=== PATIENT | male | born 1995 | race Caucasian/White ===

== ENCOUNTER → 2018-07-26 | Outpatient (CLI) | payer BC ==
--- NOTE | 2018-07-26 11:38 | US ---
EXAMINATION TYPE: US abdomen complete DATE OF EXAM: 07/26/2018 COMPARISON: NONE CLINICAL HISTORY: R10.11 ABD PAIN. EXAM MEASUREMENTS: Liver Length: 12.7 cm Gallbladder Wall: 0.2 cm CBD: 0.2 cm Spleen: 11.0 cm Right Kidney: 11.0 x 3.2 x 4.8 cm Left Kidney: 11.1 x 4.5 x 4.5 cm Pancreas: wnl Liver: wnl Gallbladder: wnl Evidence for sonographic Joyner's sign: no CBD: wnl Spleen: wnl Right Kidney: wnl Left Kidney: wnl Upper IVC: wnl Abd Aorta: wnl The visualized liver is homogenous. The intrahepatic portion of the IVC and visualized abdominal aor ta are within normal limits. There is no evidence of cholelithiasis. Common bile duct is unremarkab le. The visualized portions of the pancreas are homogenous. The spleen is unremarkable. Kidneys ar e symmetric and free of hydronephrosis. No renal lesions are seen. IMPRESSION: No suspicious finding identified to account for patient's symptoms of pain.
== END | disposition home or self-care (01) ==
LOC: RADUSWWP 10:24
PROVIDERS: ATTEND Family Medicine
DX: R10.11 Right upper quadrant pain (principal)
CPT/HCPCS: 76700

== ENCOUNTER 2018-10-15 12:34 | Emergency (ER) | payer BC ==
[2018-10-15 12:39] VITALS: RESP 16; TEMP 97.5
--- NOTE | 2018-10-15 13:09 | ED ---
Psych HPI - General Chief Complaint: Psychiatric Symptoms Stated Complaint: Petition Time Seen by Provider: 10/15/18 12:41 Source: patient Mode of arrival: ambulatory - History of Present Illness Initial Comments: 23-year-old male petitioned for psychiatric evaluation. Patient states he recently went through a breakup this began and has felt more depressed than usual. Patient states earlier he had made some suicidal comments. Patient states he is not currently suicidal he states that he made these comments out of rational thought his therapist appointment and that is why he was sent here for evaluation. Patient denies homicidal ideation. Patient states to take melatonin if he were to commit suicide. Patient states he does not want to commit suicide. Patient has no other complaints. Remaining review systems negative. - Related Data Home Medications Medication Instructions Recorded Confirmed Sertraline [Zoloft] 50 mg PO DAILY 10/15/18 10/15/18 Allergies Allergy/AdvReac Type Severity Reaction Status Date / Time No Known Allergies Allergy Verified 10/15/18 12:39 Review of Systems ROS Statement: Those systems with pertinent positive or pertinent negative responses have been documented in the HPI. ROS Other: All systems not noted in ROS Statement are negative. Past Medical History Past Medical History: No Reported History History of Any Multi-Drug Resistant Organisms: None Reported Past Surgical History: No Surgical Hx Reported Past Psychological History: No Psychological Hx Reported Smoking Status: Former smoker Past Alcohol Use History: None Reported Past Drug Use History: Marijuana General Exam - General Exam Comments Initial Comments: General: The patient is awake and alert, in no distress, and does not appear acutely ill. Eye: Pupils are equal, round and reactive to light, extra-ocular movements are intact. No nystagmus. There is normal conjunctiva bilaterally. No signs of icterus. Ears, nose, mouth and throat: There are moist mucous membranes and no oral lesions. Neck: The neck is supple, there is no tenderness or JVD. Cardiovascular: There is a regular rate and rhythm. No murmur, rub or gallop is appreciated. Respiratory: Lungs are clear to auscultation, respirations are non-labored, breath sounds are equal. No wheezes, stridor, rales, or rhonchi. Musculoskeletal: Normal ROM, no tenderness. Strength 5/5. Sensation intact. Pulses equal bilaterally 2+. Neurological: A&O x 3. CN II-XII intact, There are no obvious motor or sensory deficits. Coordination appears grossly intact. Speech is normal. Skin: Skin is warm and dry and no rashes or lesions are noted. Psychiatric: Cooperative, appropriate mood & affect, normal judgment. Limitations: no limitations Course Vital Signs 10/15/18 12:37 Temperature 97.5 F L Pulse Rate 72 Respiratory 16 Rate Blood Pressure 133/91 O2 Sat by Pulse 18 L Oximetry Medical Decision Making - Medical Decision Making 23-year-old male presenting for suicidal ideation. Sent in by petition by therapist. Patient denies any current suicidal ideations. Denies homicidal ideation. Patient medically cleared for EPS evaluation. EPS spoke with patient discussed a safety plan and consulted psychiatry who recommended discharge patient home. Patient has established therapist patient was also provided resources with any mental health as well as medical crisis unit. At this time patient is agreeable discharge continues to deny suicidal ideation. Patient discharged appearing well. - Lab Data Lab Results 10/15/18 Range/Units 13:00 Urine Color Light Yellow Urine Appearance Clear (Clear) Urine pH 5.0 (5.0-8.0) Ur Specific [place] 1.007 (1.001-1.035) Urine Protein Negative (Negative) Urine Glucose (UA) Negative (Negative) Urine Ketones Negative (Negative) Urine Blood Negative (Negative) Urine Nitrite Negative (Negative) Urine Bilirubin Negative (Negative) Urine Urobilinogen <2.0 (<2.0) mg/dL Ur Leukocyte Esterase Negative (Negative) Urine Opiates Screen Not Detected (NotDetected) Ur Oxycodone Screen Not Detected (NotDetected) Urine Methadone Screen Not Detected (NotDetected) Ur Propoxyphene Screen Not Detected (NotDetected) Ur Barbiturates Screen Not Detected (NotDetected) U Tricyclic Antidepress Not Detected (NotDetected) Ur Phencyclidine Scrn Not Detected (NotDetected) Ur Amphetamines Screen Not Detected (NotDetected) U Methamphetamines Scrn Not Detected (NotDetected) U Benzodiazepines Scrn Not Detected (NotDetected) Urine Cocaine Screen Not Detected (NotDetected) U Marijuana (THC) Screen Detected H (NotDetected) Disposition Clinical Impression: Depression Disposition: HOME SELF-CARE Condition: Stable Instructions (If sedation given, give patient instructions): Depression (ED), Help Prevent Suicide (ED) Additional Instructions: Please use medication as discussed. Please follow-up with family doctor in the next 2 days. Please follow-up with [facility]/your therapist. Please return to emergency room if the symptoms increase or worsen or for any other concerns. Is patient prescribed a controlled substance at d/c from ED?: No Referrals: Khari Wong Jr, DO [Primary Care Provider] - 1-2 days Time of Disposition: 16:26
[2018-10-15 13:35] LABS: Appearance,Urine Clear (Clear); Bilirubin,Urine Negative (Negative); Blood,Urine Negative (Negative); Color,Urine Light Yellow; Glucose,Urine (UA) Negative (Negative); Ketones,Urine Negative (Negative); Leukocyte Esterase,Urine Negative (Negative); Nitrite,Urine Negative (Negative); Protein,Urine Negative (Negative); Specific Gravity,Urine 1.007 (1.001-1.035); Urobilinogen,Urine <2.0 mg/dL (<2.0)
[2018-10-15 13:52] LABS: Urn Cannabinoid Scrn Detected (NotDetected)
[2018-10-15 13:53] LABS: Amphetamine Screen,Urine Not Detected (NotDetected); Barbiturate Screen,Urine Not Detected (NotDetected); Benzodiazepines Screen,Urine Not Detected (NotDetected); Cocaine Screen,Urine Not Detected (NotDetected); Methadone Screen, Urine Not Detected (NotDetected); Opiate Screen,Urine Not Detected (NotDetected); Oxycodone Screen, Urine Not Detected (NotDetected); Phencyclidine Screen,Urine Not Detected (NotDetected); Tricyclic Antidepressant,Urine Not Detected (NotDetected)
[2018-10-15 17:47] VITALS: BP 124/76; PULSE 70
== END 2018-10-15 17:47 | disposition home or self-care (01) ==
LOC: EC 12:34
DX: F32.9 Major depressive disorder, single episode, unspecified (principal); Z87.891 Personal history of nicotine dependence; Z79.899 Other long term (current) drug therapy
CPT/HCPCS: 80306; 81003; 99284

== ENCOUNTER 2021-08-24 16:15 | Inpatient (IN) | payer BC, MEDICAID, OTHER ==
--- NOTE | 2021-08-24 18:10 | ED ---
Psych HPI - General Chief Complaint: Psychiatric Symptoms Stated Complaint: Mental Health Time Seen by Provider: 08/24/21 18:08 Source: patient Mode of arrival: ambulatory - History of Present Illness Initial Comments: Johnie is a 26yo M who presents to the emergency department today via private vehicle for psychiatric evaluation. Patient reports he started all of depression and anxiety, he is on daily meds but reports he hasn't been able to get his prescription filled in the past 4 days. Patient reports that he follows with [facility] so counseling regularly. He'll to counseling today and was discussing his suicidal thoughts and plan and was told to come to the hospital for admission. Patient states that over the weekend he developed a suicidal plan, he found a belt that he intended to put her on his neck and hanging himself with however he did not find a location hitting himself so no physical attempt was made. Patient states he has had suicidal ideations in the past but never made a plan or taken any physical action. - Related Data Home Medications Medication Instructions Recorded Confirmed Sertraline [Zoloft] 100 mg PO DAILY 08/24/21 08/24/21 Allergies Allergy/AdvReac Type Severity Reaction Status Date / Time No Known Allergies Allergy Verified 08/24/21 18:46 Review of Systems ROS Statement: Those systems with pertinent positive or pertinent negative responses have been documented in the HPI. ROS Other: All systems not noted in ROS Statement are negative. Past Medical History Past Medical History: No Reported History History of Any Multi-Drug Resistant Organisms: None Reported Past Surgical History: No Surgical Hx Reported Past Psychological History: Depression, PTSD Smoking Status: Current every day smoker, Vaper Past Alcohol Use History: None Reported Past Drug Use History: Marijuana General Exam - General Exam Comments Initial Comments: Physical Exam GENERAL: Patient is well-developed and well-nourished. Patient is nontoxic and well-hydrated and is in no distress. HENT: Normocephalic, Atraumatic. EYES: PERRL, EOMI PULMONARY: Unlabored respirations. CARDIOVASCULAR: RRR Warm and well perfused extremities ABDOMEN: Non-distended SKIN: No rashes or bruising : Deferred NEUROLOGIC: Alert and oriented Normal speech Normal gait MUSCULOSKELETAL: Moving all extremities with no apparent injury PSYCHIATRIC: Suicidal with plan Limitations: no limitations Course Vital Signs 08/24/21 16:40 Temperature 98.2 F Pulse Rate 107 H Respiratory 15 Rate Blood Pressure 112/77 O2 Sat by Pulse 99 Oximetry Medical Decision Making - Medical Decision Making Patient was seen and evaluated, patient was medically cleared for psychiatric evaluation was evaluated by the EPS nurse who agrees the patient meets admission criteria Asians sign himself in voluntarily - Lab Data Result diagrams: 08/24/21 18:13 08/24/21 18:13 Lab Results 08/24/21 08/24/21 08/24/21 Range/Units 18:13 18:13 18:13 WBC 10.2 (3.8-10.6) k/uL RBC 5.30 (4.30-5.90) m/uL Hgb 16.3 (13.0-17.5) gm/dL Hct 47.3 (39.0-53.0) % MCV 89.3 (80.0-100.0) fL MCH 30.7 (25.0-35.0) pg MCHC 34.4 (31.0-37.0) g/dL RDW 13.0 (11.5-15.5) % Plt Count 328 (150-450) k/uL MPV 7.6 Neutrophils % 64 % Lymphocytes % 28 % Monocytes % 5 % Eosinophils % 1 % Basophils % 1 % Neutrophils # 6.6 (1.3-7.7) k/uL Lymphocytes # 2.8 (1.0-4.8) k/uL Monocytes # 0.6 (0-1.0) k/uL Eosinophils # 0.1 (0-0.7) k/uL Basophils # 0.1 (0-0.2) k/uL Sodium 139 (137-145) mmol/L Potassium 3.7 (3.5-5.1) mmol/L Chloride 97 L (98-107) mmol/L Carbon Dioxide 31 H (22-30) mmol/L Anion Gap 11 mmol/L BUN 11 (9-20) mg/dL Creatinine 1.06 (0.66-1.25) mg/dL Est GFR (CKD-EPI)AfAm >90 (>60 ml/min/1.73 sqM) Est GFR (CKD-EPI)NonAf >90 (>60 ml/min/1.73 sqM) Glucose 107 H (74-99) mg/dL Calcium 10.2 (8.4-10.2) mg/dL Total Bilirubin 0.5 (0.2-1.3) mg/dL AST 21 (17-59) U/L ALT 18 (4-49) U/L Alkaline Phosphatase 97 (38-126) U/L Total Protein 8.4 H (6.3-8.2) g/dL Albumin 5.1 H (3.5-5.0) g/dL Urine Color Light Yellow Urine Appearance Clear (Clear) Urine pH 5.5 (5.0-8.0) Ur Specific [place] 1.004 (1.001-1.035) Urine Protein Negative (Negative) Urine Glucose (UA) Negative (Negative) Urine Ketones Negative (Negative) Urine Blood Negative (Negative) Urine Nitrite Negative (Negative) Urine Bilirubin Negative (Negative) Urine Urobilinogen <2.0 (<2.0) mg/dL Ur Leukocyte Esterase Negative (Negative) Salicylates <1.0 mg/dL Urine Opiates Screen Not Detected (NotDetected) Ur Oxycodone Screen Not Detected (NotDetected) Urine Methadone Screen Not Detected (NotDetected) Ur Propoxyphene Screen Not Detected (NotDetected) Acetaminophen <10.0 ug/mL Ur Barbiturates Screen Not Detected (NotDetected) U Tricyclic Antidepress Not Detected (NotDetected) Ur Phencyclidine Scrn Not Detected (NotDetected) Ur Amphetamines Screen Not Detected (NotDetected) U Methamphetamines Scrn Not Detected (NotDetected) U Benzodiazepines Scrn Not Detected (NotDetected) Urine Cocaine Screen Not Detected (NotDetected) U Marijuana (THC) Screen Detected H (NotDetected) Serum Alcohol <10 mg/dL Disposition Clinical Impression: Depression, Suicidal ideation Disposition: TRANSFER TO PSYCH HOSP/UNIT Condition: Serious Is patient prescribed a controlled substance at d/c from ED?: No Referrals: Khari Wong Jr, [Primary Care Provider] - 1-2 days
[2021-08-24 18:44] LABS: Basophils # (A) 0.1 k/uL (0-0.2); Basophils % (A) 1 %; Eosinophils # (A) 0.1 k/uL (0-0.7); Eosinophils % (A) 1 %; HCT 47.3 % (39.0-53.0); HGB 16.3 gm/dL (13.0-17.5); Lymphocytes # (A) 2.8 k/uL (1.0-4.8); Lymphocytes % (A) 28 %; MCH 30.7 pg (25.0-35.0); MCHC 34.4 g/dL (31.0-37.0); MCV 89.3 fL (80.0-100.0); Mean Platelet Volume 7.6; Monocytes # (A) 0.6 k/uL (0-1.0); Monocytes % (A) 5 %; Neutrophils # (A) 6.6 k/uL (1.3-7.7); Neutrophils % (A) 64 %; Platelet Count 328 k/uL (150-450); WBC 10.2 k/uL (3.8-10.6)
[2021-08-24 18:50] LABS: ALT 18 U/L (4-49); AST 21 U/L (17-59); Acetaminophen <10.0 ug/mL; African American GFR (CKD) >90 (>60 ml/min/1.73 sqM); Albumin 5.1 g/dL (3.5-5.0); Alcohol <10 mg/dL; Alkaline Phosphatase 97 U/L (38-126); Anion Gap 11 mmol/L; Blood Urea Nitrogen 11 mg/dL (9-20); Calcium 10.2 mg/dL (8.4-10.2); Carbon Dioxide 31 mmol/L (22-30); Chloride 97 mmol/L (98-107); Glucose 107 mg/dL (74-99); Non-African American GFR(CKD) >90 (>60 ml/min/1.73 sqM); Potassium 3.7 mmol/L (3.5-5.1); Salicylate <1.0 mg/dL; Sodium 139 mmol/L (137-145); Total Bilirubin 0.5 mg/dL (0.2-1.3); Total Protein 8.4 g/dL (6.3-8.2)
[2021-08-24 19:55] LABS: Appearance,Urine Clear (Clear); Bilirubin,Urine Negative (Negative); Blood,Urine Negative (Negative); Color,Urine Light Yellow; Glucose,Urine (UA) Negative (Negative); Ketones,Urine Negative (Negative); Leukocyte Esterase,Urine Negative (Negative); Nitrite,Urine Negative (Negative); PH, Urine 5.5 (5.0-8.0); Protein,Urine Negative (Negative); Specific Gravity,Urine 1.004 (1.001-1.035); Urobilinogen,Urine <2.0 mg/dL (<2.0)
[2021-08-24 20:04] LABS: Amphetamine Screen,Urine Not Detected (NotDetected); Barbiturate Screen,Urine Not Detected (NotDetected); Benzodiazepines Screen,Urine Not Detected (NotDetected); Cocaine Screen,Urine Not Detected (NotDetected); Methadone Screen, Urine Not Detected (NotDetected); Opiate Screen,Urine Not Detected (NotDetected); Oxycodone Screen, Urine Not Detected (NotDetected); Phencyclidine Screen,Urine Not Detected (NotDetected); Tricyclic Antidepressant,Urine Not Detected (NotDetected); Urn Cannabinoid Scrn Detected (NotDetected)
[2021-08-24] MEDS ORDERED: HALOPERIDOL LACTATE 5 MG/ML 1 ML VIAL IM PRN (22:36)
[2021-08-24] MEDS ORDERED: ACETAMINOPHEN TAB 325 MG TAB PO PRN (22:36)
[2021-08-24] MEDS ORDERED: MAGNESIUM HYDROXIDE 2,400 MG/10 ML CUP PO PRN (22:36)
[2021-08-24] MEDS ORDERED: LORazepam 1 MG TAB PO PRN (22:36)
[2021-08-24] MEDS ORDERED: MAG HYDROX/AL HYDROX/SIMETH 30 ML CUP PO PRN (22:36)
[2021-08-24] MEDS ORDERED: LORazepam 2 MG/ML INJ IM PRN (22:39)
[2021-08-24] MEDS ORDERED: haloperidoL 5 MG TAB PO PRN (22:39)
[2021-08-25] MEDS: NICOTINE 14MG/24HR PATCH TRANSDERM SCH (08:30)
--- NOTE | 2021-08-25 09:14 | P.CONS ---
History of Present Illness - Reason for Consult Consult date: 08/25/21 Medical management - Chief Complaint Recent suicide attempt - History of Present Illness Is a 26-year-old white male who has been suffering from depression. He had someone attempted to take his own life with a belt hanging himself. He decided against it and sought help but coming the emergency room here [facility]. He is a known patient to my office typically sees my nurse practitioner, Kye Caraballo. He is a known history of acne. He takes Zoloft for depression previously to his admission. Review of Systems All systems: negative Constitutional: Denies chills, Denies fever Ears, nose, mouth and throat: Denies headache, Denies sore throat Cardiovascular: Denies chest pain, Denies shortness of breath Respiratory: Denies cough Gastrointestinal: Denies abdominal pain, Denies diarrhea, Denies nausea, Denies vomiting Musculoskeletal: Denies myalgias Integumentary: Denies pruritus, Denies rash Neurological: Denies numbness, Denies weakness Psychiatric: Reports as per HPI Endocrine: Denies fatigue, Denies weight change Past Medical History Past Medical History: No Reported History Additional Past Medical History / Comment(s): acne History of Any Multi-Drug Resistant Organisms: None Reported Past Surgical History: No Surgical Hx Reported Past Anesthesia/Blood Transfusion Reactions: No Reported Reaction Smoking Status: Vaper Medications and Allergies Home Medications Medication Instructions Recorded Confirmed Type Sertraline [Zoloft] 100 mg PO DAILY 08/24/21 08/24/21 History Allergies Allergy/AdvReac Type Severity Reaction Status Date / Time No Known Allergies Allergy Verified 08/24/21 23:53 Physical Exam Vitals: Vital Signs Temp Pulse Pulse Resp BP BP Pulse Ox 08/24/21 23:25 97.8 F 85 20 100/62 100 08/24/21 16:40 98.2 F 107 H 15 112/77 99 Intake and Output 08/24/21 08/25/21 08/25/21 22:59 06:59 14:59 Other: Weight 56.699 kg 52.673 kg GENERAL: Well-appearing, well-nourished and in no acute distress, thin, male.. HEAD: Atraumatic, normocephalic. EYES: Pupils equal round and reactive to light, extraocular movements intact, sclera anicteric, conjunctiva are normal. ENT:nares patent, oropharynx clear without exudates. Moist mucous membranes. He has a piercing through his nares. NECK: Normal range of motion, supple without lymphadenopathy or JVD, no thyromegaly LUNGS: Breath sounds clear to auscultation bilaterally and equal. No wheezes rales or rhonchi. HEART: Regular rate and rhythm without murmurs, rubs or gallops.S1S2 Normal ABDOMEN: Soft, nontender, normoactive bowel sounds. No guarding, no rebound. No masses appreciated. EXTREMITIES: Normal range of motion, no pitting or edema. No clubbing or cyanosis. NEUROLOGICAL: Cranial nerves II through XII grossly intact. Normal speech, normal gait. PSYCH: Somewhat depressed mood, normal affect. SKIN: Warm, Dry, normal turgor, no rashes or lesions noted. Results CBC & Chem 7: 08/24/21 18:13 08/24/21 18:13 Labs: Abnormal Lab Results - Last 24 Hours (Table) 08/24/21 08/24/21 Range/Units 18:13 18:13 Chloride 97 L (98-107) mmol/L Carbon Dioxide 31 H (22-30) mmol/L Glucose 107 H (74-99) mg/dL Total Protein 8.4 H (6.3-8.2) g/dL Albumin 5.1 H (3.5-5.0) g/dL U Marijuana (THC) Screen Detected H (NotDetected) Assessment and Plan (1) Acne Current Visit: Yes Status: Acute Code(s): L70.9 - ACNE, UNSPECIFIED SNOMED Code(s): 64210296 (2) Depression Current Visit: Yes Status: Acute Code(s): F32.A - DEPRESSION, UNSPECIFIED SNOMED Code(s): 00701173 (3) Suicidal ideation Current Visit: Yes Status: Acute Code(s): R45.851 - SUICIDAL IDEATIONS SNOMED Code(s): 5481132 Plan: He will follow-up with psych services here on the psychiatric floor and continue counseling. He does not need treatment currently for his acne, will monitor the symptoms. We'll monitor his overall health. We'll reevaluate him as needed. Thank you for this consultation
[2021-08-25 10:28] LABS: Basophils # (A) 0.1 k/uL (0-0.2); Basophils % (A) 1 %; Eosinophils # (A) 0.1 k/uL (0-0.7); Eosinophils % (A) 2 %; HCT 46.2 % (39.0-53.0); HGB 15.8 gm/dL (13.0-17.5); Lymphocytes # (A) 2.9 k/uL (1.0-4.8); Lymphocytes % (A) 35 %; MCH 30.6 pg (25.0-35.0); MCHC 34.1 g/dL (31.0-37.0); MCV 89.7 fL (80.0-100.0); Mean Platelet Volume 7.4; Monocytes # (A) 0.5 k/uL (0-1.0); Monocytes % (A) 6 %; Neutrophils # (A) 4.6 k/uL (1.3-7.7); Neutrophils % (A) 55 %; Platelet Count 310 k/uL (150-450); RBC 5.16 m/uL (4.30-5.90); RDW 12.7 % (11.5-15.5); WBC 8.3 k/uL (3.8-10.6)
[2021-08-25] MEDS ORDERED: SERTRALINE 100 MG TAB PO STA (10:28)
[2021-08-25 10:42] LABS: ALT 15 U/L (4-49); AST 19 U/L (17-59); African American GFR (CKD) >90 (>60 ml/min/1.73 sqM); Alkaline Phosphatase 91 U/L (38-126); Anion Gap 10 mmol/L; Bilirubin, Delta 0.1 mg/dL (0.0-0.2); Bilirubin,Unconjugated 0.2 mg/dL (0.0-1.1); Blood Urea Nitrogen 14 mg/dL (9-20); Carbon Dioxide 30 mmol/L (22-30); Chloride 101 mmol/L (98-107); Glucose 60 mg/dL (74-99); Non-African American GFR(CKD) 87 (>60 ml/min/1.73 sqM); Potassium 4.2 mmol/L (3.5-5.1); Sodium 141 mmol/L (137-145); Total Bilirubin 0.3 mg/dL (0.2-1.3); Total Protein 8.1 g/dL (6.3-8.2)
[2021-08-25 11:02] VITALS: BMI 17.1
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
[2021-08-25 16:25] LABS: Chol/HDL Ratio 4.26 Ratio; LDL Cholesterol,Calculated 105.5 mg/dL (0.0-131.0); VLDL Calculation 17.66 mg/dL (5.00-40.00)
[2021-08-25] MEDS: traZODone HCL 100 MG TAB PO SCH (20:12)
[2021-08-26] MEDS: NICOTINE 14MG/24HR PATCH TRANSDERM SCH (08:38)
[2021-08-26] MEDS: SERTRALINE 50 MG TAB PO SCH (08:38)
[2021-08-26] MEDS ORDERED: SERTRALINE 100 MG TAB PO SCH (09:00)
--- NOTE | 2021-08-26 13:40 | P.PN ---
Progress Note - Text Progress Note Date: 08/26/21 Interval History: Patient was seen wandering the hallways and was directable and agreeable to speak with technical report writer in the office. Patient reports feeling "torn up with guilt", reports poor self-esteem/self-respect. He reports his mood is "depressed" and anxious. He denies suicidal ideations currently, but reports he did have suicidal thoughts last night before bedtime, but denies plan or intent. He reports low motication, excessive guilt, anhedonia. He reports appetite is imp roving; he finished his lunch. He reports sleeping for 5.5 hours last night, woke up and it took him another 30 minutes to fall back asleep due to his mind racing. He denies auditory or visual hallucinations. He is compliance with his medications and denies side effects. He reports chronic global worries that are difficult to control, restless, on edge, irritable, muscle tension, easily fatigued. He reports daily picking at his skin where he has acne, he is trying to control it here. Mental Status Exam: General Appearance: Patient appears to be stated age, long shaggy haircut, dressed in hospital gown. He has a nose piercing. Orientation: Alert, oriented to person, place, time and situation. Behavior: Patient is seated without any agitated behavior. Eye contact is appropriate. Speech: Speech is fluent and non-pressured. Mood/Affect: Patient reports his mood is depressed, affect is congruent. Suicidality/Homicidality: Patient denies having any suicidal or homicidal ideation intent or plan today. Patient does endorse suicidal ideations last night. Perceptions: Patient denies any visual hallucinations and denies any auditory hallucinations. Though content/process: There is no evidence of any delusional thought content and thought process is linear and goal-directed. Memory and concentration: Grossly intact for the purposes of this session Judgment and insight: Fair Assessment Major depressive disorder, recurrent, severe Generalized anxiety disorder Excoriation disorder PTSD Cannabis use disorder Tobacco use disorder Plan: -Patient is admitted under voluntary status to MHU for stabilization of psychiatric symptoms and safety. Patient signed adult voluntary form and medication consent and is placed in patient's chart. -Medications. Zoloft was increased to 150 mg daily starting this morning for depression/anxiety/PTSD with plans to titrate over the weekend. Continue Trazodone at 100 mg by mouth at bedtime for depression/insomnia, with plan titrate as needed over the weekend. -Ativan and Haldol PRN for agitation/aggression -Patient was counseled on substance abuse and desired to cut back on use -Patient was informed of the risks, benefits and side effects of the medication and patient verbally consented to taking the medications. -NRT - nicotine patch -SW on board for discharge planning. Encourage patient to participate in groups to work on coping skills.
[2021-08-26] MEDS: traZODone HCL 100 MG TAB PO SCH (22:17)
[2021-08-27] MEDS: NICOTINE 14MG/24HR PATCH TRANSDERM SCH (09:23)
[2021-08-27] MEDS: SERTRALINE 50 MG TAB PO SCH (09:24)
--- NOTE | 2021-08-27 15:41 | P.PN ---
Progress Note - Text Progress Note Date: 08/27/21 Interval History: Patient was seen wandering the hallways and was directable and agreeable to speak with ticket writer in the office. Patient reports feeling "a little bit anxious but less depressed than yesterday". He has been trying to socialize more with his peers. He denies suicidal ideations today. His motivation, energy, appetite are all improving. He reports he slept well last night until he was awakened to have his vitals done at around 6am and couldn't fall back asleep. He denies auditory or visual hallucinations. He is compliance with his medications and denies side effects, except he reports having a headache yesterday and a little headache this morning (but it went away on its own). Mental Status Exam: General Appearance: Patient appears to be stated age, long shaggy haircut, dressed in hospital gown. He has a nose piercing. Orientation: Alert, oriented to person, place, time and situation. Behavior: Patient is seated without any agitated behavior. Eye contact is appropriate. Speech: Speech is fluent and non-pressured. Mood/Affect: Patient reports his mood is "a little bit anxious but less depressed than yesterday", affect is congruent. Suicidality/Homicidality: Patient denies having any suicidal or homicidal ideation intent or plan today. Perceptions: Patient denies any visual hallucinations and denies any auditory hallucinations. Though content/process: There is no evidence of any delusional thought content and thought process is linear and goal-directed. Memory and concentration: Grossly intact for the purposes of this session Judgment and insight: Improving Assessment Major depressive disorder, recurrent, severe Generalized anxiety disorder Excoriation disorder PTSD Cannabis use disorder Tobacco use disorder Plan: -Patient is admitted under voluntary status to MHU for stabilization of psychiatric symptoms and safety. Patient signed adult voluntary form and medication consent and is placed in patient's chart. -Medications. Continue Zoloft 150 mg daily for depression/anxiety/PTSD with plans to titrate over the weekend. Continue Trazodone 100 mg by mouth at bedtime for depression/insomnia, with plan titrate as needed over the weekend. -Ativan and Haldol PRN for agitation/aggression. -Patient was counseled on substance abuse and desired to cut back on use. -Patient was informed of the risks, benefits and side effects of the medication and patient verbally consented to taking the medications. -NRT - nicotine patch -SW on board for discharge planning. Encourage patient to participate in groups to work on coping skills.
[2021-08-27] MEDS: traZODone HCL 100 MG TAB PO SCH (20:07)
[2021-08-28 07:16] VITALS: RESP 16; TEMP 98.1
[2021-08-28] MEDS: SERTRALINE 50 MG TAB PO SCH (08:53)
[2021-08-28] MEDS: NICOTINE 14MG/24HR PATCH TRANSDERM SCH (08:53)
--- NOTE | 2021-08-28 18:02 | P.PN ---
Progress Note - Text Progress Note Date: 08/28/21 Interval History: Patient was seen playing [employer] and word searches, and was directable and agreeable to speak with policy writer typist in the office. Patient reports feeling "better, a little anxious". He has been socializing more with his peers. He reports he is anxious about what he and his fiance are going to do regarding finances, but he reports feeling more hope than he has in years. He reports having more resources now that he can use outside the hospital. He denies suicidal ideations, plan or intent currently, but does report having a fleeting suicidal thought "kill yourself" this morning that went away quickly. He reports good sleep, good appetite. He denies auditory or visual hallucinations. He is compliant with his medications and denies side effects. Mental Status Exam: General Appearance: Patient appears to be stated age, long shaggy haircut, dressed in clean, casual attire. He has a nose piercing. Orientation: Alert, oriented to person, place, time and situation. Behavior: Patient is seated without any agitated behavior. Eye contact is appropriate. Speech: Speech is fluent and non-pressured. Mood/Affect: Patient reports his mood is "better, a little anxious", affect is congruent. Suicidality/Homicidality: Patient denies having any suicidal or homicidal ideation intent or plan currently. Perceptions: Patient denies any visual hallucinations and denies any auditory hallucinations. Though content/process: There is no evidence of any delusional thought content and thought process is linear and goal-directed. Memory and concentration: Grossly intact for the purposes of this session Judgment and insight: Improving Assessment Major depressive disorder, recurrent, severe Generalized anxiety disorder Excoriation disorder PTSD Cannabis use disorder Tobacco use disorder Plan: -Patient is admitted under voluntary status to MHU for stabilization of psychiatric symptoms and safety. Patient signed adult voluntary form and medication consent and is placed in patient's chart. -Medications. Continue Zoloft 150 mg daily for depression/anxiety/PTSD. Continue Trazodone 100 mg by mouth at bedtime for depression/insomnia. -Ativan and Haldol PRN for agitation/aggression. -Patient was counseled on substance abuse and desired to cut back on use. -Patient was informed of the risks, benefits and side effects of the medication and patient verbally consented to taking the medications. -NRT - nicotine patch -SW on board for discharge planning. Encourage patient to participate in groups to work on coping skills.
[2021-08-28] MEDS: traZODone HCL 100 MG TAB PO SCH (21:16)
[2021-08-29] MEDS: SERTRALINE 50 MG TAB PO SCH (08:36)
[2021-08-29] MEDS: NICOTINE 14MG/24HR PATCH TRANSDERM SCH (08:36)
--- NOTE | 2021-08-29 15:00 | P.PN ---
Progress Note - Text Progress Note Date: 08/29/21 Interval History: Patient was seen in the hallway, and was directable and agreeable to speak with automobile and property underwriter. Patient reports feeling "pretty good" but also endorses feeling anxious "7/10" and is feeling "overwhelmed" with facing life stressors outside the hospital after discharge. He inquires about an IOP for step-down care. He denies suicidal ideations, plan or intent currently. He denies homicidal ideations, plan or intent. He reports waking up at 3am last night and having difficulty returning to sleep. He reports good appetite. He denies auditory or visual hallucinations. He is compliant with his medications and denies side effects. Mental Status Exam: General Appearance: Patient appears to be stated age, long shaggy haircut, dressed in clean, casual attire. He has a nose piercing. Orientation: Alert, oriented to person, place, time and situation. Behavior: Patient is engaged in assessment without any agitated behavior. Eye contact is appropriate. Speech: Speech is fluent and non-pressured. Mood/Affect: Patient reports his mood is "pretty good...anxious 7/10, a little overwhelmed", affect is congruent. Suicidality/Homicidality: Patient denies having any suicidal or homicidal ideation intent or plan currently. Perceptions: Patient denies any visual hallucinations and denies any auditory hallucinations. Though content/process: There is no evidence of any delusional thought content and thought process is linear and goal-directed. Memory and concentration: Grossly intact for the purposes of this session Judgment and insight: Improving Assessment Major depressive disorder, recurrent, severe Generalized anxiety disorder Excoriation disorder PTSD Cannabis use disorder Tobacco use disorder Plan: -Patient is admitted under voluntary status to MHU for stabilization of psychiatric symptoms and safety. Patient signed adult voluntary form and medica tion consent and is placed in patient's chart. -Medications. Continue Zoloft 150 mg daily for depression/anxiety/PTSD. Increase Trazodone to 150 mg by mouth at bedtime for depression/insomnia. -Ativan and Haldol PRN for agitation/aggression. -Patient was counseled on substance abuse and desired to cut back on use. -Patient was informed of the risks, benefits and side effects of the medication and patient verbally consented to taking the medications. -NRT - nicotine patch -SW on board for discharge planning. Encourage patient to participate in groups to work on coping skills. -Recommend IOP after discharge for step-down care.
[2021-08-29] MEDS: traZODone HCL 50 MG TAB PO SCH (20:49)
[2021-08-30 07:11] VITALS: BP 108/68; PULSE 88
[2021-08-30] MEDS: SERTRALINE 50 MG TAB PO SCH (09:13)
[2021-08-30] MEDS: NICOTINE 14MG/24HR PATCH TRANSDERM SCH (09:13)
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
--- NOTE | 2021-08-30 12:15 | P.PN ---
Progress Note - Text Progress Note Date: 08/30/21 Interval History: Patient was seen wandering the hallways and was directable and agreeable to speak with writer technical publications in the office. Initially, the patient was to be discharged however when he was assessed by [facility], he was deemed a high risk for suicide. Furthermore, the patient expressed that he did not feel safe for discharge at this time. He expressed suicidal ideation and was unable to appropriately contract for safety. Discharge will be held at this time. Mental Status Exam: General Appearance: Patient appears to be stated age is alert, pleasant, and cooperative. Patient is in no acute distress and has much improved hygiene and grooming Behavior: Patient is calmly seated without any agitated behavior. Eye contact is appropriate. Speech: Patient's speech is fluent and nonpressured. Mood/Affect: Patient reports their mood is "much better, just a little nervous", affect is congruent and euthymic. Suicidality/Homicidality: Patient denies having any suicidal or homicidal ideation intent or plan. Perceptions: Patient denies any auditory or visual hallucinations. Though content/process: There is no evidence of any delusional thought content and thought process is linear and goal-directed. Patient is future oriented. Memory and concentration: AOX3, grossly intact for the purposes of this session. Can spell "WORLD" backwards correctly. Judgment and insight: Fair Vital Signs Temp 98.1 F 08/30/21 06:33 Pulse 88 08/30/21 06:33 Resp 16 08/30/21 06:33 BP 108/68 08/30/21 06:33 Pulse Ox 100 08/24/21 23:25 FiO2 Assessment Major depressive disorder, recurrent, severe Excoriation disorder PTSD Cannabis use disorder Tobacco use disorder Plan: -Although the patient was initially to be discharge, he is currently presenting with imminent risk of harm to self or others. He has numerous risk factors and was considered high risk by [facility] upon assessment. We will hold discharge at this time. Patient continues to meet criteria for inpatient psychiatric admission for symptom stabilization and safety. Patient has signed adult voluntary form and medication consent and was placed in patient's chart. -Medications: Increase Zoloft to 200 mg by mouth daily for depression/anxiety Continue trazodone 50 mg daily at bedtime for insomnia -When necessary Ativan and Haldol for agitation/aggression. -NRT - nicotine patch -SW on board for discharge planning. Encouraged the patient to participate in milieu.
[2021-08-30] MEDS: traZODone HCL 50 MG TAB PO SCH (21:18)
[2021-08-31] MEDS: NICOTINE 14MG/24HR PATCH TRANSDERM SCH (08:47)
[2021-08-31] MEDS ORDERED: SERTRALINE 100 MG TAB PO SCH (09:00)
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
== END 2021-08-31 16:00 | disposition home or self-care (01) | DRG 885 ==
LOC: EC 16:15 → 3MHU 22:33
PROVIDERS: ADMIT Psychiatry & Neurology Psychiatry; ATTEND Psychiatry & Neurology Psychiatry
DX: F33.2 Major depressive disorder, recurrent severe without psychotic features (principal); R45.851 Suicidal ideations; F12.20 Cannabis dependence, uncomplicated; F17.200 Nicotine dependence, unspecified, uncomplicated; F41.1 Generalized anxiety disorder; F42.4 Excoriation (skin-picking) disorder; F43.10 Post-traumatic stress disorder, unspecified; G47.00 Insomnia, unspecified; Z56.0 Unemployment, unspecified; Z62.810 Personal history of physical and sexual abuse in childhood; Z79.899 Other long term (current) drug therapy; Z91.410 Personal history of adult physical and sexual abuse; Z20.822 Contact with and (suspected) exposure to COVID-19
CPT/HCPCS: 36415; 80053; 80061; 80143; 80179; 80306; 80320; 81003; 82075; 82248; 83036; 84443; 85025; 87635